=== PATIENT | male | born 1995 | race Hispanic/Latino ===

== ENCOUNTER 2020-12-29 02:27 | Emergency (ER) | payer SELFPAY ==
[~2020-12-29] VITALS: Ht 167.6 cm; Wt 86.2 kg
[2020-12-29 02:32] VITALS: BP 153/100
[2020-12-29] MEDS ORDERED: DEXAMETHASONE 4 MG TAB PO SCH (03:30)
[2020-12-29] MEDS ORDERED: DEXA2TAB PO (03:45)
== END 2020-12-29 04:03 | disposition home or self-care (01) ==
LOC: EDH 02:27
DX: L50.9 Urticaria, unspecified (principal); Z79.52 Long term (current) use of systemic steroids; Z88.0 Allergy status to penicillin
CPT/HCPCS: 99283; J8540